=== PATIENT | male | born 1980 | race Caucasian/White ===

== ENCOUNTER 2020-03-27 09:40 | Outpatient (CLI) | payer OTHER, SELFPAY ==
[2020-03-27 12:03] LABS: Basophils Percent Auto 0.3 % (0.2-1.2); Eosinophils Absolute Auto 0.1 K/mm3 (0-0.3); Eosinophils Percent Auto 1.2 % (0-4.4); Hematocrit 43.9 % (42.0-52.0); Hemoglobin 15.2 g/dL (14.0-18.0); Immature Granulocyte Absolute 0.03 K/mm3 (0.00-0.031); Immature Granulocyte Percent A 0.5 % (0-0.5); Lymphocytes Absolute Auto 2.06 K/mm3 (0.9-3.2); Lymphocytes Percent Auto 35.2 % (18.3-44.2); Mean Corpuscular HGB Conc 34.6 g/dl (32-36); Mean Corpuscular Hemoglobin 29.9 pg (26-34); Mean Corpuscular Volume 86.4 fl (80-100); Mean Platelet Volume 9.2 fl (7.4-10.4); Monocytes Absolute Auto 0.5 K/mm3 (0.1-0.6); Monocytes Percent Auto 8.5 % (2.6-8.5); Neutrophils Absolute Auto 3.2 K/mm3 (1.3-6.7); Neutrophils Percent Auto 54.3 % (45.5-73.1); Platelet Count Result 218 k/mm3 (150-375); Red Blood Count 5.08 M/mm3 (4.6-6.20); Red Cell Distribution Width 12.4 % (11.5-14.5); White Blood Count 5.9 K/mm3 (4.5-10.0)
[2020-03-27 12:15] LABS: Alanine Aminotransferase 26 U/L (4-50); Albumin Level 4.8 g/dL (3.5-5.1); Alkaline Phosphatase 72 U/L (38-126); Aspartate Amino Transferase 30 U/L (17-59); Bilirubin,Total 0.5 mg/dL (0.2-1.3); Blood Urea Nitrogen 15 mg/dL (9-20); Calcium 9.2 mg/dL (8.4-10.2); Carbon Dioxide 26 mmol/L (22-30); Chloride 104 mmol/L (98-107); Cholesterol 228 mg/dL (0-200); Estimated Glomerular Filt Rate > 60; Glucose 106 mg/dL (75-110); HDL Direct 46 mg/dL; Potassium 4.2 mmol/L (3.4-5.0); Sodium 139 mmol/L (137-145); Triglycerides 146 mg/dL (<150)
[2020-03-27 12:26] LABS: LDL Cholesterol Direct 153 mg/dL
== END 2020-03-27 09:41 | disposition home or self-care (01) ==
LOC: ANHLAB 09:41
PROVIDERS: PCP Internal Medicine; Visit Provider Internal Medicine
DX: Z00.00 Encounter for general adult medical examination without abnormal findings (principal)
CPT/HCPCS: 36415; 80053; 80061; 84443; 85025

== ENCOUNTER → 2020-03-27 11:01 | Outpatient (REF) | payer OTHER, SELFPAY | LOC: ANHLAB 11:01 | PROVIDERS: PCP Internal Medicine; Visit Provider Nurse Practitioner Family | DX: D22.5 Melanocytic nevi of trunk (principal) | CPT/HCPCS: 88305 ==

== ENCOUNTER → 2020-12-31 00:47 | Outpatient (CLI) | payer OTHER, SELFPAY ==
[2020-12-31 20:45] LABS: SARS-CoV-2 RNA PCR Negative
== END ==
PROVIDERS: PCP Internal Medicine; Visit Provider Orthopaedic Surgery
DX: Z01.812 Encounter for preprocedural laboratory examination (principal); Z20.822 Contact with and (suspected) exposure to COVID-19
CPT/HCPCS: C9803; U0003; U0005

== ENCOUNTER 2021-01-03 01:08 | Day surgery (SDC) | payer OTHER, SELFPAY ==
[2020-12-18 10:57] VITALS: BMI 32.5
[2021-01-03] VITALS (9 sets, daily range): BP systolic 116–147; BP diastolic 71–87; PULSE 64–75; RESP 10–20; TEMP 36.2–36.3; O2SAT 97–100
[2021-01-03] MEDS: LACTATED RINGERS 1,000 ML 30 ML IV CONT ×2 (08:12→10:40)
[2021-01-03] MEDS: ACETAMINOPHEN 500 MG TABLET 1000 MG PO (08:12)
[2021-01-03] MEDS: KETOROLAC 15 MG/ML VIAL (*BKC) IV PUSH (08:14)
--- NOTE | 2021-01-03 08:33 | WPDANESEPPF ---
Anes - Initial Pre Proc Eval Procedure: Operation Date: 01/03/21 09:00 Proposed Procedures p Left Tricep Tendon Debridement And Repair, - Avinash Westbrook MD s Left Cubital Tunnel Decompression - Avinash Westbrook MD Date/Time: 01/03/21 08:33 Surgeon: Avinash Westbrook MD Pre Op Diagnosis: triceps tendinopathy left elbow Patient Data Age: 40 Gender: M Height: 6 ft 1 in Weight: 112.4 kg Last Vital Signs Temp 36.3 C L 01/03/21 07:05 Pulse 74 01/03/21 07:05 Resp 20 01/03/21 07:05 BP 147/80 H 01/03/21 07:05 Pulse Ox 97 01/03/21 07:05 Allergies Allergy/AdvReac Type Severity Reaction Status Date / Time No Known Allergies Allergy Verified 12/18/20 11:00 Home Medications Medication Instructions Recorded Confirmed Type multivitamin 1 tablet PO DAILY 03/07/20 01/03/21 History tramadol 50 mg tablet 50 mg PO Q6H PRN #30 tablet 12/27/20 01/03/21 Rx Patient hx anesthesia problems: none Family hx anesthesia problems: none PMFSH Surgical History Surgical History History of appendectomy (~11/2005) History of cholecystectomy (~11/2018) History of discectomy (~10/2015) History of mandibular surgery History of vasectomy (~07/2017) Family History Family History Mother Patient's mother is in good health Father Patient's father is in good health Other Family history of malignant neoplasm Hypertension Social History Social History Smoking status: Never smoker Second hand tobacco smoke exposure: No Alcohol intake: current Living arrangements: with friend(s) Gender identity (if verbalized by the patient): Male Spiritual care concerns: No Anes - Eval Final PreProcedure Day of Procedure 01/03/21 08:33 Patient weight: obese Heart: regular rate and rhythm Lungs: clear to auscultation Airway: Mallampati scale class II Neurological: alert and oriented Last oral intake: >/= 8 hours ASA classification: III Emergent: no Anesthetic plan: proceed Anesthesia type and monitoring: general LMA and standard monitoring Informed Consent: The patient's anesthetic plan and its attendant risks and benefits were discussed with the patient/family/POA. Questions were solicited and answers provided to the satisfaction of the patient/family/POA.
--- NOTE | 2021-01-03 08:53 | WPDHPUPDATE1 ---
History and Physical Update Update Date/Time: 01/03/21 08:53 History and Physical has been reviewed, including an updated exam of the patient. There are NO changes in the patient's condition. Risks, benefits, and alternatives have been discussed and questions answered. Patient agrees to proceed with procedure.
[2021-01-03] MEDS: ceFAZolin 2 GM/D5W 50 ML 2 GM/50 ML BAG IVPB (09:04)
[2021-01-03] MEDS: BUPIVACAINE/EPINEPHRINE 0.5% 10 ML VIAL 30 ML INFILTRATE (09:42)
[2021-01-03] MEDS: ONDANSETRON INJ 4 MG/2 ML VIAL IV PUSH (11:06)
[2021-01-03] MEDS: diphenhydrAMINE HCl INJ 50 MG/ML VIAL 25 MG IV PUSH (11:09)
[2021-01-03] MEDS: SCOPOLAMINE 1.5 MG PATCH TRANSDERM (11:10)
[2021-01-03] MEDS: oxyCODONE HCL (*CRX) 5 MG TAB IR PO (11:59)
--- NOTE | 2021-01-03 12:52 | PM.PROC ---
Procedure Note - Detailed Date of procedure: 01/03/21 Pre-op diagnosis: triceps tendinopathy left elbow Post-op diagnosis: other (1. Tendinitis of left triceps 2. Osteophyte of olecranon process 3. Cubital tunnel syndrome left elbow) Procedure performed: 1. Triceps tendon debridement, excision of olecranon osteophyte, with primary tendon repair 2. Ulnar nerve decompression at the elbow Description of procedure: The triceps insertion on the olecranon was exposed. The osteophyte was palpable and carefully exposed sharply. The tendon attachment was degenerative. This tissue was excised. The osteophyte was removed with the rongeur. The tendon was repaired with [id number] absorbable sutures. Ulnar nerve decompression was performed through the same incision. The nerve appeared hyperemic and compressed at the cubital tunnel. Anesthesia: [facility] Surgeon: Aivnash Westbrook MD Fine Dining Server: Margoth Dumas PA-C Estimated blood loss (mL): 10 Pathology: none sent Complications: No immediate complications Condition: stable Disposition: PACU Findings: Physician assistant golf professional, Margoth Dumas PA-C, required for surgery; including patient positioning, draping, tissue retraction, maintaining instrument position, wound closure, and dressing placement. Preoperative antibiotics were given. A general anesthetic was administered. The upper extremity was prepped and draped in the usual sterile fashion with a well-padded tourniquet high on the arm. The wound was injected with 0.5% Marcaine with epinephrine. The limb was exsanguinated and the tourniquet inflated to 250 mmHg. A longitudinal incision was created at the olecranon triceps insertion region just ulnar. Careful dissection was brought down to the triceps insertion. The osteophyte was palpable. Triceps was split in line with its fibers and carefully peeled sharply off of the tip of the olecranon. The osteophyte was exposed and removed with the rongeur. Degenerative tissue of the triceps was observed and this was excised. The remaining defect in the triceps was repaired with [id number] #1 Vicryl sutures. Attention was turned to the cubital tunnel. Careful dissection was brought down to the nerve along side the hypertrophied triceps. The nerve appeared hyperemic and compressed at the cubital tunnel. The retinaculum was released and the fascia at the flexor carpi ulnaris was released as well. Proximal release was performed and the nerve was nicely decompressed. Mild mobility without diane subluxation observed. The wound was irrigated and closed with interrupted 3-0 Monocryl suture followed by running 4-0 Monocryl suture and Steri-Strips. Posterior splint was fashioned and a sling applied. The patient was extubated and brought to the recovery room in stable condition. There were no complications.
== END 2021-01-03 12:39 | disposition home or self-care (01) ==
PROVIDERS: PCP Internal Medicine; Visit Provider Orthopaedic Surgery
PROC: (CPT 24341; principal; 2021-01-03 09:00)
PROC: (CPT 64721; 2021-01-03 09:00)
DX: G56.22 Lesion of ulnar nerve, left upper limb (principal); M25.722 Osteophyte, left elbow; M77.8 Other enthesopathies, not elsewhere classified; E66.9 Obesity, unspecified; Z68.32 Body mass index [BMI] 32.0-32.9, adult
CPT/HCPCS: 24341; 24120; A4565; A9270; J0690; J1100; J1200; J1885; J2250; J2405; J2704; J3010; J7120

== ENCOUNTER 2021-09-30 09:30 | Emergency (ER) | payer OTHER, SELFPAY ==
[2021-09-30 09:34] VITALS: BP 157/89; PULSE 85; RESP 14; TEMP 36.9; O2SAT 99
--- NOTE | 2021-09-30 09:34 | ED.URI ---
HPI - URI/Sore Throat General Chief Complaint: Upper Respiratory Infection Stated Complaint: Sinus Pain/Ear Pain Time Seen by Provider: 09/30/21 09:34 Source: patient and RN notes reviewed History of Present Illness HPI Narrative: Patient is a 40-year-old male who presents the urgent care with complaints of bilateral ears clogged, sinus pressure, rhinorrhea and postnasal drainage. Patient states that he has been COVID vaccinated and denies any recent exposures. Patient states that he did do a rapid COVID test last night which was negative. However symptoms started on Wednesday. Patient denies of any fevers, chills, nausea or vomiting. No other acute complaints. No acute distress noted. Patient aware of the plan of care. Some parts of this dictation were generated by voice recognition software and may contain typographical and/or grammatical inaccuracies. Related Data Allergies Allergy/AdvReac Type Severity Reaction Status Date / Time No Known Allergies Allergy Verified 09/30/21 09:34 Review of Systems Review of Systems: CONSTITUTIONAL: Denies fever, chills, or sweats. EYES: Denies visual changes, redness, or discharge. ENT: Reports of sinus pressure, rhinorrhea, postnasal drainage and bilateral otalgia CARDIOVASCULAR: Denies chest pain, palpitations, or edema. RESPIRATORY: Denies cough or dyspnea. GASTROINTESTINAL: Denies abdominal pain, nausea, vomiting, or diarrhea. GENITOURINARY: Denies dysuria or hematuria. SKIN: Denies rash or itching. MUSCULOSKELETAL: Denies back pain, joint pain, or myalgia. NEUROLOGIC: Denies headache, numbness, or weakness. All other systems reviewed are negative, except as documented in HPI. [facility] Surgical History Surgical History History of appendectomy (~11/2005) History of cholecystectomy (~11/2018) History of discectomy (~10/2015) History of mandibular surgery History of surgery on arm (~01/03/21) Triceps Tendon Debridement, Excision of Olecranon Osteophyte, Primary Tendon Repair, Ulnar Nerve Decompression - Lt History of vasectomy (~07/2017) Family History Family History Mother Patient's mother is in good health Father Patient's father is in good health Other Family history of malignant neoplasm Hypertension Social History Social History Second hand tobacco smoke exposure: No Alcohol intake: current Gender identity (if verbalized by the patient): Male Spiritual care concerns: No Comments At the time of my signature, I reviewed and agree with the nursing past medical, surgical, social, and family history. There is no relevant family history pertinent to the patient complaint. Exam Narrative: GENERAL: This is a well-nourished, well-developed patient, in no apparent distress. HEAD: normocephalic, atraumatic. EYES: PERRL. Sclera clear/white. Vision is grossly intact. EARS: External ears normal, auditory canals clear and without drainage, moderate fluid noted bilateral TMs without otitis. TMs normal without perforation. Hearing grossly intact. NOSE: External nose normal with no obvious nasal discharge. Mild to moderate bilateral erythemic nares with clear to yellow rhinorrhea THROAT: Mucous membranes moist, posterior pharynx clear. Moderate postnasal drainage NECK: Neck supple, non-tender without lymphadenopathy, masses or thyromegaly. CARDIOVASCULAR: Regular rate and rhythm without murmurs, gallops, or rubs. RESPIRATORY: Clear to auscultation. Breath sounds equal bilaterally. No wheezes, rales, or rhonchi. SKIN: warm, intact with no suspicious lesions or rash, good texture and turgor. NEURO: awake, alert, and oriented to person, place and time. There were no obvious focal neurologic abnormalities. EXTREMITIES: No clubbing, cyanosis, or edema. Course Course Level of Care: Express Care Visit Vital Sig
== END 2021-09-30 10:00 | disposition home or self-care (01) ==
PROVIDERS: Emergency Provider Nurse Practitioner Family; PCP Internal Medicine
DX: J32.9 Chronic sinusitis, unspecified (principal)
CPT/HCPCS: 99213; G0463

== ENCOUNTER → 2022-04-30 09:05 | Outpatient (CLI) | payer OTHER, SELFPAY ==
--- NOTE | ~2022-04-30 | MR_ITS ---
EXAMINATION: MR knee LT wo con DATE: 04/30/2022 09:59 INDICATION: Left knee pain. TECHNIQUE: Magnetic resonance imaging (MRI) of the left knee was performed without intravenous contra st. Sequences included axial PD-weighted FS FSE, coronal PD-weighted FSE and PD-weighted FS FSE, sagi ttal PD-weighted FSE, and sagittal T2-weighted FS FSE. COMPARISON: Left knee radiograph 03/18/2022 FINDINGS: Medial compartment: Medial meniscus is normal. Medial compartment cartilage is normal. Lateral compartment: Lateral meniscus is normal. There is cartilage surface regularity of tibial condyle medially. Femoral cartilage is normal. Patellofemoral compartment: There is shallow partial-thickness cartilage loss of patellar median ridge. Trochlear cartilage is no rmal. Ligaments and tendons: The anterior and posterior cruciate ligaments are normal. Medial collateral ligament and lateral laura ateral ligament complex are normal. There is mild patellar tendinopathy. Fluid: There is a small knee joint effusion. There is a small multiloculated Cornejo's cyst. There is mild sup erficial infrapatellar bursitis. IMPRESSION: 1. Mild chondrosis of lateral and patellofemoral compartments. 2. Small knee joint effusion. 3. Small Cornejo's cyst. Reviewed, dictated and finalized at location A.
== END ==
PROVIDERS: PCP Internal Medicine; Visit Provider Orthopaedic Surgery
DX: M25.462 Effusion, left knee (principal); M71.22 Synovial cyst of popliteal space [Baker], left knee
CPT/HCPCS: 73721

== ENCOUNTER 2022-06-18 19:45 | Emergency (ER) | payer OTHER, SELFPAY ==
--- NOTE | ~2022-06-18 | XR_ITS ---
EXAMINATION: XR foot RT min 3V DATE: 06/18/2022 20:09 INDICATION: Log was dropped on the right foot presenting with anterior right foot pain TECHNIQUE: Dorsoplantar, two oblique and lateral views of the right foot were obtained. COMPARISON: None. FINDINGS: Alignment is normal. No fracture. Mild osteoarthritis at the first interphalangeal joint. Remaining j oint spaces are normal. Tiny Achilles calcaneal spur and tiny enthesopathic ossification in the dista l Achilles tendon. Soft tissues are unremarkable. IMPRESSION: 1. No acute osseous abnormality. Reviewed, dictated and finalized at location A.
[2022-06-18 19:48] VITALS: BP 152/95; PULSE 97; RESP 20; TEMP 36.8; O2SAT 100
--- NOTE | 2022-06-18 19:50 | ED.LOWEXIN ---
HPI - Extremity Injury (Lower) General Chief Complaint: Extremity Injury, Lower Stated Complaint: Right Foot Injury Time Seen by Provider: 06/18/22 20:08 Source: patient and RN notes reviewed Mode of arrival: ambulatory Limitations: no limitations History of Present Illness HPI Narrative: 41-year-old male presents with concern for foot pain. He reports just prior to arrival he dropped a log on his foot. He reports he cannot pain when he flexes his toes and bears weight on the foot. He denies open skin, lacerations or abrasions. Denies decreased range of motion or strength. complaint: foot injury Related Data Home Medications Medication Instructions Recorded Confirmed No Home Medications 06/18/22 06/18/22 Allergies Allergy/AdvReac Type Severity Reaction Status Date / Time No Known Allergies Allergy Verified 06/18/22 19:55 Review of Systems Review of Systems: CONSTITUTIONAL: Denies malaise, chills, sweats, or fever. SKIN: Denies rash or itching, open skin, laceration, abrasion, redness, warmth MUSCULOSKELETAL: Reports right foot swelling pain NEUROLOGIC: Denies numbness, weakness All systems reviewed & are unremarkable except as noted in HPI and below PMFSH Past Medical History Medical History Left knee pain Surgical History Surgical History History of appendectomy (~11/2005) History of cholecystectomy (~11/2018) History of discectomy (~10/2015) History of mandibular surgery History of surgery on arm (~01/03/21) Triceps Tendon Debridement, Excision of Olecranon Osteophyte, Primary Tendon Repair, Ulnar Nerve Decompression - Lt History of vasectomy (~07/2017) Family History Family History Mother Patient's mother is in good health Father Hypertension Grandparent Hypertension Other Family history of malignant neoplasm Social History Social History Smoking status: Never smoker Second hand tobacco smoke exposure: No Alcohol intake: current Substance use: never 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 There is no relevant family history pertinent to the presenting complaint Exam Narrative: GENERAL: Well-appearing, well-nourished, and in no acute distress. HEAD: Normocephalic, atraumatic. EYES: PERRLA, conjunctivae clear NECK: Supple. CHEST: Speaks in full sentences. No respiratory distress. HEART: Regular rate and rhythm. Normal and equal peripheral pulses. EXTREMITIES: Right foot and digits have normal strength and sensation, grossly normal range of motion. Mild dorsal edema without erythema or ecchymosis. 5/5 strength with ankle and digit flexion and extension. Normal sensation with sensitivity to light touch and pain. Mild dorsal point tenderness. No open wounds, no skin tenting, no devitalized tissue or atrophy, no trophic changes, no obvious deformity, alignment normal, nearby joints and structures intact. Distal pulses palpable and equal bilaterally, skin warm, dry, pink. Capillary refill less than 3 seconds. SKIN: Warm, dry, no rash. NEURO: Alert and oriented x3. PSYCH: Normal mood and affect Course Course Emergency Course: Patient is aware of diagnosis, understands and agrees to treatment plan. Anticipatory guidance given. Patient agrees to follow-up as directed and is aware of reasons to seek care at the emergency department. Portions of this record may have been created with voice recognition software Level of Care: Express Care Visit Vital Signs Vital signs: Reviewed. MDM - Extremity Injury (Lower) MDM Narrative Medical decision making narrative: P
== END 2022-06-18 20:54 | disposition home or self-care (01) ==
PROVIDERS: Emergency Provider Nurse Practitioner; PCP Internal Medicine
DX: S90.31XA Contusion of right foot, initial encounter (principal); W20.8XXA Other cause of strike by thrown, projected or falling object, initial encounter
CPT/HCPCS: 73630; 99213; G0463

== ENCOUNTER 2023-07-30 08:52 | Emergency (ER) | payer OTHER, SELFPAY ==
[2023-07-30 08:58] VITALS: BP 156/94; PULSE 79; RESP 16; TEMP 35.9; O2SAT 97
--- NOTE | 2023-07-30 09:01 | ED.URI ---
HPI - URI/Sore Throat General Chief Complaint: Upper Respiratory Infection Stated Complaint: Cough, Trouble Breathing, Ear Ache Source: patient and RN notes reviewed History of Present Illness HPI Narrative: 42 yo M presents to urgent care with complaints of a cough x 3 weeks. Pt states he started out with URI symptoms that resolved but his cough is still lingering. Pt states he feels like there is mucous in his chest he can't cough up. Pt states his cough is worse in the evenings. Pt reports associated dyspnea now as well. Pt states his sinus congestion came back 3 days ago. Pt also reporting feeling fluid in his right ear. Reports a sore throat when he wakes up but contributes this to the face he wears a CPAP at night and the sore throat goes away during the day. Denies any fevers, chills, chest pain, N/V/D. Pt has been taking NyQuil at nighttime. Related Data Allergies Allergy/AdvReac Type Severity Reaction Status Date / Time No Known Allergies Allergy Verified 12/30/22 09:34 Review of Systems Review of Systems: Pertinent positives and pertinent negatives per HPI. [facility] Past Medical History Medical History Left knee pain Surgical History Surgical History History of appendectomy (~11/2005) History of cholecystectomy (~11/2018) History of discectomy (~10/2015) History of mandibular surgery History of surgery on arm (~01/03/21) Triceps Tendon Debridement, Excision of Olecranon Osteophyte, Primary Tendon Repair, Ulnar Nerve Decompression - Lt History of vasectomy (~07/2017) Family History Family History Mother Patient's mother is in good health Father Hypertension Grandparent Hypertension Other Family history of malignant neoplasm Social History Social History Smoking status: Never smoker Second hand tobacco smoke exposure: No Alcohol intake: current Substance use: never Living arrangements: with family Occupation/Education: occupation Additional occupation/education comments: [employer] Gender identity (if verbalized by the patient): Male Spiritual care concerns: No Comments At the time of my signature, I reviewed and agree with the nursing past medical, surgical, social, and family history. There is no relevant family history pertinent to the patient complaint. Exam Narrative: GENERAL: This is a well-nourished, well-developed patient, in no apparent distress. HEAD: normocephalic, atraumatic. EYES: Sclera clear/white. Vision is grossly intact. EARS: External ears normal, auditory canals clear and without drainage, TMs pearly sorenson without perforation with some clear fluid behind both TMs. Hearing grossly intact. NOSE: External nose normal with no obvious nasal discharge, nares without redness, no rhinorrhea. THROAT: Mucous membranes moist, posterior pharynx clear. NECK: Neck supple, non-tender without lymphadenopathy, masses or thyromegaly. CARDIOVASCULAR: Regular rate and rhythm without murmurs, gallops, or rubs. RESPIRATORY: Rhonchi noted in LLL, pt coughs frequently with a dry, hacky, cough. GASTROINTESTINAL: Abdomen soft, non-tender, nondistended. Bowel sounds are active. No hepato-splenomegaly, or palpable masses. No guarding. SKIN: warm, intact with no suspicious lesions or rash, good texture and turgor. NEURO: awake, alert, and oriented to person, place and time. There were no obvious focal neurologic abnormalities. Course Course Level of Care: Express Care Visit Vital Signs Vital signs: reviewed MDM - URI/Sore Throat MDM Narrative Medical decision making narrative: Go to the ER for any new or worsening symptoms. Avoid smoking/second-hand smoke. Continue to take Tylenol or Motrin for pain. Increase your Vitamin C intake. Use a humidifier or v
== END 2023-07-30 09:19 | disposition home or self-care (01) ==
PROVIDERS: Emergency Provider Nurse Practitioner Family; PCP Internal Medicine
DX: J40 Bronchitis, not specified as acute or chronic (principal); J32.9 Chronic sinusitis, unspecified
CPT/HCPCS: 99213; G0463

== ENCOUNTER 2023-12-23 15:24 | Outpatient (CLI) | payer OTHER, SELFPAY ==
--- NOTE | ~2023-12-23 | MR_ITS ---
EXAMINATION: MR lumbar spine wo con DATE: 12/23/2023 15:48 INDICATION: Dorsalgia, unspecified. TECHNIQUE: Magnetic resonance imaging (MRI) of the lumbar spine was performed without intravenous con trast. Sequences included sagittal T2-weighted FSE, sagittal T2-weighted FS FSE, sagittal T1-weighted FSE, and axial T2-weighted FSE. COMPARISON: None FINDINGS: There is 5 degrees levocurvature of lumbar spine. Vertebral body heights are normal. There is moderately decreased disc height at L5-S1. The distal spinal cord signal intensity is normal. The conus medullaris is at T12. The following disc levels are specifically discussed: L1-L2: The disc does not extend beyond the endplate margin. There is mild bilateral facet joint osteo arthritis. There is no neural foraminal stenosis. There is no central canal stenosis. L2-L3: The disc does not extend beyond the endplate margin. There is mild bilateral facet joint osteo arthritis. There is no neural foraminal stenosis. There is no central canal stenosis. L3-L4: The disc is bulging and has an annular fissure. There is mild bilateral facet joint osteoarthr itis. There is mild bilateral neural foraminal stenosis. There is mild central canal stenosis. L4-L5: The disc is bulging with superimposed left central extrusion with mass effect on left L5 nerve root in left lateral recess. There is severe right and moderate left facet joint osteoarthritis. The re is mild bilateral neural foraminal stenosis. There is mild central canal stenosis. There is modera te stenosis of left lateral recess. L5-S1: The disc is bulging with superimposed left subarticular zone extrusion with mass effect on lef t S1 nerve root in left lateral recess. There is moderate right and mild left facet joint osteoarthri tis. There is mild bilateral neural foraminal stenosis. There is mild central canal stenosis. There i s moderate stenosis of left lateral recess. IMPRESSION: 1. Moderate lumbar spondylosis. Reviewed, dictated and finalized at location A.
== END 2023-12-23 15:25 ==
LOC: MICIMG 15:25
PROVIDERS: PCP Physician Assistant; Visit Provider Physician Assistant
DX: M47.896 Other spondylosis, lumbar region (principal)
CPT/HCPCS: 72148

== ENCOUNTER 2024-03-22 13:35 | Outpatient (CLI) | payer OTHER, SELFPAY ==
--- NOTE | ~2024-03-22 | MR_ITS ---
EXAMINATION: MR lumbar spine wo/w con DATE: 03/22/2024 14:41 INDICATION: Lumbar disc herniation. Low back pain. TECHNIQUE: Magnetic resonance imaging (MRI) of the lumbar spine was performed without and with 20 mL MultiHance intravenous contrast. COMPARISON: Lumbar spine MRI 12/23/2023 FINDINGS: There is 3 degrees levocurvature of lumbar spine. Vertebral body heights are normal. There is severely decreased disc height at L5-S1. The distal spinal cord signal intensity is normal. The co nus medullaris is at T12. The following disc levels are specifically discussed: L1-L2: The disc does not extend beyond the endplate margin. There is mild bilateral facet joint osteo arthritis. There is no neural foraminal stenosis. There is no central canal stenosis. L2-L3: The disc does not extend beyond the endplate margin. There is mild bilateral facet joint osteo arthritis. There is no neural foraminal stenosis. There is no central canal stenosis. L3-L4: The disc is bulging and has an annular fissure. There is mild bilateral facet joint osteoarthr itis. There is no neural foraminal stenosis. There is mild central canal stenosis. L4-L5: There is a left central extrusion with mass effect on the left L5 nerve root in left lateral r ecess. There is severe bilateral facet joint osteoarthritis. There is mild bilateral neural foraminal stenosis. There is mild central canal stenosis. There is moderate stenosis of left lateral recess. L5-S1: The disc is bulging and has an annular fissure. The disc abuts the left S1 nerve root in left lateral recess. There is moderate bilateral facet joint osteoarthritis. There is mild bilateral neura l foraminal stenosis. There is mild central canal stenosis. There is moderate stenosis of left latera l recess. IMPRESSION: 1. Severe lower lumbar spondylosis, stable from 12/23/2023. Reviewed, dictated and finalized at location A.
== END 2024-03-22 13:36 | disposition home or self-care (01) ==
PROVIDERS: PCP Physician Assistant; Visit Provider Neurological Surgery
DX: M51.26 Other intervertebral disc displacement, lumbar region (principal); M43.06 Spondylolysis, lumbar region
CPT/HCPCS: 72158; A9577

== ENCOUNTER 2024-06-02 08:49 | Outpatient (CLI) | payer OTHER, SELFPAY ==
[2024-06-02 15:58] LABS: Alanine Aminotransferase 27 U/L (6-50); Albumin Level 4.5 g/dL (3.5-5.1); Alkaline Phosphatase 67 U/L (38-126); Anion Gap 10 mmol/L (4-12); Aspartate Amino Transferase 58 U/L (17-59); Bilirubin,Total 0.6 mg/dL (0.2-1.3); Blood Urea Nitrogen 14 mg/dL (9-20); Calcium 9.4 mg/dL (8.4-10.2); Carbon Dioxide 28 mmol/L (22-30); Chloride 100 mmol/L (98-107); Cholesterol 216 mg/dL (0-200); Estimated Glomerular Filt Rate > 60; Glucose 88 mg/dL (65-110); HDL Direct 44 mg/dL; Potassium 4.4 mmol/L (3.4-5.0); Sodium 138 mmol/L (137-145); Triglycerides 109 mg/dL (<150)
[2024-06-02 16:09] LABS: LDL Cholesterol Direct 139 mg/dL
== END 2024-06-02 08:50 | disposition home or self-care (01) ==
LOC: ANHGOSHLAB 08:51
PROVIDERS: PCP Physician Assistant; Visit Provider Nurse Practitioner
DX: Z00.00 Encounter for general adult medical examination without abnormal findings (principal); E78.5 Hyperlipidemia, unspecified
CPT/HCPCS: 36415; 80053; 80061; 84443